=== PATIENT | female | born 1995 | race Two or more races ===

== ENCOUNTER 2022-02-24 14:03 | Inpatient (IN) | payer MEDICAID ==
[2022-02-24] MEDS ORDERED: Water For Irrigation,Sterile 1,000 ML Container IRR PRN (14:46)
[2022-02-24] MEDS ORDERED: Sodium Chloride 0.9% 20 ML SDV IV PRN (14:46)
[2022-02-24] MEDS ORDERED: Ondansetron 4 MG/2 ML SDV IVPUSH PRN (14:46)
[2022-02-24] MEDS ORDERED: Butorphanol 1 MG/ML SDV IVPUSH PRN (14:46)
[2022-02-24] MEDS ORDERED: Sodium Chloride 0.9% 10 ML Syringe FLUSH PRN (14:46)
[2022-02-24] MEDS ORDERED: Misoprostol 200 MCG Tab PO PRN (14:46)
[2022-02-24] MEDS ORDERED: Tranexamic Acid 1,000 MG in Sodium Chloride 0.9% 100 ML IV PRN (14:46)
[2022-02-24] MEDS ORDERED: Lidocaine 1% 50 ML MDV INJECT PRN (14:46)
[2022-02-24] MEDS ORDERED: Methylergonovine 0.2 MG/1 ML Amp IM PRN (14:46)
[2022-02-24] MEDS ORDERED: Sodium Chloride 0.9% 2.5 ML Syringe FLUSH PRN (14:46)
[2022-02-24] MEDS ORDERED: Carboprost Tromethamine 250 MCG/1 ML Amp IM PRN (14:46)
[2022-02-24] MEDS ORDERED: Oxytocin/0.9 % Sodium Chloride 30 UNIT/500 ML BAG IV SCH ×2 (15:00→18:45)
[2022-02-24] MEDS ORDERED: Lactated Ringers 1,000 ML IV SCH (15:00)
[2022-02-24] MEDS ORDERED: Ibuprofen 400 MG Tab PO PRN (23:46)
[2022-02-24] MEDS ORDERED: Acetaminophen 500 MG Tab PO PRN (23:46)
[2022-02-24] MEDS ORDERED: Docusate Sodium 100 MG Cap PO PRN (23:46)
[2022-02-24] MEDS ORDERED: Bisacodyl 10 MG Supp RECTAL PRN (23:46)
[2022-02-24] MEDS ORDERED: Benzocaine/Menthol 20%-0.5% Spray 78 GM Cannister TOP PRN (23:46)
[2022-02-24] MEDS ORDERED: Witch Hazel Medicated Pads 40/Jar TOP PRN (23:46)
[2022-02-24] MEDS ORDERED: Lanolin 100% Cream 7 GM Tube TOP PRN (23:46)
[2022-02-25] MEDS: Ibuprofen 800 MG Tab PO PRN (00:08)
[2022-02-25] MEDS: Acetaminophen 500 MG Tab PO PRN (11:25)
[2022-02-26] MEDS: Acetaminophen 500 MG Tab PO PRN (02:59)
[2022-02-26] MEDS: Ibuprofen 800 MG Tab PO PRN (08:24)
== END 2022-02-26 13:40 | disposition home or self-care (01) | DRG 807 ==
LOC: MW.OB 14:03 → MW.OBCHECK 14:03 → MW.OB 21:41 → MW.OBCHECK 21:41 → OBSVTOIN 21:41 → MW.OB 02-25 02:02
PROVIDERS: ADMIT Obstetrics & Gynecology Obstetrics; ATTEND Obstetrics & Gynecology Obstetrics
PROC: 10E0XZZ Delivery of Products of Conception, External Approach (ICD-10-PCS; principal; 2022-02-24)
DX: O77.0 Labor and delivery complicated by meconium in amniotic fluid (principal); Z37.0 Single live birth; Z20.822 Contact with and (suspected) exposure to COVID-19; Z3A.40 40 weeks gestation of pregnancy
CPT/HCPCS: 36415; 59025; 59409; 85014; 85018; 85027; 86592; 86850; 86900; 86901; A9270-GY; J2590; J7120; U0002

== ENCOUNTER 2024-08-05 18:40 | Observation (INO) | payer MEDICAID ==
[2024-08-05] MEDS: Sodium Chloride 0.9% 1,000 ML IV ONE ×2 (19:46→21:14)
[2024-08-05] MEDS: Sodium Chloride 0.9% 2.5 ML Syringe FLUSH PRN (19:46)
[2024-08-05] MEDS: Sodium Chloride 0.9% 10 ML Syringe FLUSH PRN (19:46)
[2024-08-05 19:50] LABS: BILIRUBIN,URINE NEGATIVE (NEGATIVE); COLOR,URINE YELLOW; GLUCOSE,URINE NEGATIVE (NEGATIVE); KETONES,URINE NEGATIVE (NEGATIVE); LEUKOCYTE ESTERASE,URINE MODERATE (NEGATIVE); NITRITE,URINE NEGATIVE (NEGATIVE); OCCULT BLOOD,URINE TRACE-INTACT (NEGATIVE); PROTEIN,URINE NEGATIVE (NEGATIVE)
[2024-08-05 19:51] LABS: APPEARANCE,URINE SLT CLOUDY
[2024-08-05 19:51] LABS: BASOPHILS ABSOLUTE AUTO 0.02 K/uL (0.00-0.20); BASOPHILS PERCENT AUTO 0.2 % (0.0-1.0); EOSINOPHILS ABSOLUTE AUTO 0.15 K/uL (0.00-0.45); EOSINOPHILS PERCENT AUTO 1.3 % (0.0-6.0); HEMATOCRIT 33.2 % (37.0-47.0); HEMOGLOBIN 11.2 g/dL (12.0-16.0); IMMATURE GRAN PERCENT AUTO 0.8 % (0.0-0.4); LYMPHOCYTES ABSOLUTE AUTO 2.48 K/uL (1.00-4.80); LYMPHOCYTES PERCENT AUTO 20.8 % (24.0-44.0); MEAN CORPUSCULAR HGB CONC 33.7 g/dL (32.0-36.0); MEAN PLATELET VOLUME 10.5 fL (9.4-12.3); MONOCYTES ABSOLUTE AUTO 0.77 K/uL (0.00-0.80); MONOCYTES PERCENT AUTO 6.4 % (0.0-8.0); NEUTROPHILS ABSOLUTE AUTO 8.42 K/uL (1.80-7.70); NEUTROPHILS PERCENT AUTO 70.5 % (41.0-71.0); PLATELET COUNT,PLT 164 K/uL (150-400); RED BLOOD CELL COUNT 3.86 M/uL (4.10-5.30); WHITE BLOOD CELL COUNT,WBC 11.94 K/uL (3.9-11.3)
[2024-08-05 20:03] LABS: AMORPHOUS SEDIMENT,URINE FEW (NEGATIVE); BACTERIA,URINE FEW (NEGATIVE); CALCIUM OXALATE CRYSTALS,URINE MODERATE (NEGATIVE); EPITHELIAL CELLS,URINE FEW (NONE-FEW); MUCUS,URINE OCCASIONAL (NONE-MOD); RBC,URINE 0-2 (0-2/HPF)
[2024-08-05 20:31] LABS: CORONAVIRUS COVID-19 NAA NEGATIVE (NEGATIVE); INFLUENZA A NAA NEGATIVE (NEGATIVE); INFLUENZA B NAA NEGATIVE (NEGATIVE); RESPIRATORY SYNCYTIAL VIR NAA NEGATIVE (NEGATIVE)
[2024-08-05 20:37] LABS: A/G RATIO 0.6 (0.9-1.6); ALANINE AMINOTRANSFERASE,ALT 24 IU/L (14-63); ALBUMIN 2.5 g/dL (3.4-5.0); ALKALINE PHOSPHATASE 179 U/L (46-116); ASPARTATE AMNIOTRANSFERASE,AST 40 IU/L (15-37); BILIRUBIN TOTAL 0.5 mg/dL (0.2-1.0); BLOOD UREA NITROGEN,BUN 5 mg/dL (7.0-18.0); CALCIUM 8.8 mg/dL (8.5-10.1); CARBON DIOXIDE,CO2 23.7 mmol/L (21.0-32.0); CHLORIDE,CL 107 mmol/L (98-107); CREATININE 0.4 mg/dL (0.6-1.0); GLUCOSE RANDOM 80 mg/dL (74-106); LIPASE 46 U/L (16-77); MAGNESIUM 1.6 mg/dL (1.8-2.4); PROTEIN TOTAL,TP 6.4 g/dL (6.4-8.2); SODIUM,NA 142 mmol/L (136-145)
[2024-08-05 20:41] LABS: CREATINE KINASE,CK 1071 U/L (26-308); ESTIMATED GFR 140 mL/min (>60); POTASSIUM,K 2.2 mmol/L (3.5-5.1)
[2024-08-05] MEDS: Potassium Chloride 20 MEQ in Premix Bag 1 BAG IV ONE ×2 (21:14→23:44)
[2024-08-05] MEDS ORDERED: Sodium Chloride 0.9% 250 ML IV SCH (21:15)
[2024-08-05] MEDS: Lidocaine 2% 11 ML Jelly Filled Syringe MUCMEM STA (22:27)
[2024-08-05] MEDS: Terbutaline 1 MG/ML SDV SUBCUT ONE (23:45)
[2024-08-06] MEDS: Sodium Chloride 0.9% 1,000 ML IV SCH ×2 (01:25→13:11)
[2024-08-06 06:09] LABS: BLOOD UREA NITROGEN,BUN 7 mg/dL (7.0-18.0); CALCIUM 8.4 mg/dL (8.5-10.1); CARBON DIOXIDE,CO2 23.8 mmol/L (21.0-32.0); CHLORIDE,CL 110 mmol/L (98-107); CREATININE 0.6 mg/dL (0.6-1.0); GLUCOSE RANDOM 89 mg/dL (74-106); SODIUM,NA 144 mmol/L (136-145)
[2024-08-06 06:12] LABS: ESTIMATED GFR 127 mL/min (>60)
[2024-08-06] MEDS: Potassium Chloride 20 MEQ in Premix Bag 1 BAG IV SCH (07:15)
[2024-08-06 09:27] LABS: AMPHETAMINES SCREEN, URINE NEGATIVE (CUTOFF=500); BARBITURATE SCREEN,URINE NEGATIVE (CUTOFF=200); BENZODIAZEPINES SCREEN,URINE NEGATIVE (CUTOFF=150); BUPRENORPHINE SCREEN,URINE NEGATIVE (CUTOFF=10); METHADONE SCREEN, URINE NEGATIVE (CUTOFF=200); METHAMPHETAMINES SCREEN, URINE NEGATIVE (CUTOFF=500); OXYCODONE SCREEN,URINE NEGATIVE (CUT0FF=100); PCP SCREEN,URINE NEGATIVE (CUTOFF=25); THC SCREEN,URINE 20 NG/ML NEGATIVE (CUTOFF=50)
[2024-08-06] MEDS ORDERED: Sodium Chloride 0.9% 2.5 ML Syringe FLUSH PRN (10:27)
[2024-08-06] MEDS ORDERED: Ondansetron 4 MG/2 ML SDV IVPUSH PRN (10:27)
[2024-08-06 10:46] LABS: MAGNESIUM 1.5 mg/dL (1.8-2.4)
[2024-08-06] MEDS: Magnesium Sulfate/Water 4 GM in Premix Bag 1 BAG IV ONE (11:40)
[2024-08-06 11:48] LABS: CREATININE,URINE RAND 72.2 mg/dL; POTASSIUM,URINE RANDOM 12.5 mmol/L
[2024-08-06] MEDS: Potassium Chloride 10 MEQ in Premix Bag 1 BAG IV SCH ×2 (11:49→16:54)
[2024-08-06] MEDS: Potassium Chloride 20 MEQ Tab.ER PO SCH ×2 (11:52→18:12)
[2024-08-06 14:41] LABS: CARBON DIOXIDE,CO2 22.9 mmol/L (21.0-32.0); CREATININE 0.6 mg/dL (0.6-1.0); EST CRCL DRUG DOSING (CG) 102.06 mL/min; POTASSIUM,K 2.6 mmol/L (3.5-5.1)
[2024-08-06] MEDS ORDERED: Potassium Chloride 10 MEQ in Premix Bag 1 BAG IV SCH (15:30)
[2024-08-06] MEDS: Sodium Chloride 0.9% 10 ML Syringe FLUSH PRN (21:20)
[2024-08-06 22:22] LABS: CALCIUM 8.1 mg/dL (8.5-10.1); CARBON DIOXIDE,CO2 23.9 mmol/L (21.0-32.0); CREATININE 0.5 mg/dL (0.6-1.0); EST CRCL DRUG DOSING (CG) 122.47 mL/min; MAGNESIUM 1.7 mg/dL (1.8-2.4); POTASSIUM,K 3.2 mmol/L (3.5-5.1)
[2024-08-07 06:29] LABS: CALCIUM 8.2 mg/dL (8.5-10.1); CREATININE 0.4 mg/dL (0.6-1.0); EST CRCL DRUG DOSING (CG) 153.09 mL/min; MAGNESIUM 1.5 mg/dL (1.8-2.4)
[2024-08-07] MEDS: Prenatal Multivitamin with Calcium/Folic Acid/Iron Tab PO SCH (09:16)
[2024-08-07] MEDS: Potassium Chloride 10 MEQ in Premix Bag 1 BAG IV SCH (09:31)
[2024-08-07] MEDS: Magnesium Sulfate/Water 4 GM in Premix Bag 1 BAG IV ONE (09:44)
[2024-08-07] MEDS: Potassium Chloride 20 MEQ Tab.ER PO SCH ×2 (10:33→17:56)
[2024-08-07] MEDS ORDERED: Lidocaine 1% 2 ML ONE (12:43)
[2024-08-07] MEDS: NS with KCl 40mEq 1,000 ML IV ONE (13:15)
[2024-08-07] MEDS: Sodium Chloride 0.9% 1,000 ML IV SCH (18:13)
[2024-08-07] MEDS: Loperamide 2 MG Cap PO PRN (19:37)
[2024-08-07 19:39] LABS: CALCIUM 8.7 mg/dL (8.5-10.1); CARBON DIOXIDE,CO2 25.5 mmol/L (21.0-32.0); CREATININE 0.5 mg/dL (0.6-1.0); EST CRCL DRUG DOSING (CG) 122.47 mL/min; MAGNESIUM 1.7 mg/dL (1.8-2.4); POTASSIUM,K 3.8 mmol/L (3.5-5.1)
[2024-08-08 06:48] LABS: BASOPHILS ABSOLUTE AUTO 0.02 K/uL (0.00-0.20); BASOPHILS PERCENT AUTO 0.2 % (0.0-1.0); EOSINOPHILS ABSOLUTE AUTO 0.17 K/uL (0.00-0.45); EOSINOPHILS PERCENT AUTO 2.1 % (0.0-6.0); HEMATOCRIT 29.5 % (37.0-47.0); HEMOGLOBIN 9.9 g/dL (12.0-16.0); IMMATURE GRAN ABSOLUTE AUTO 0.15 K/uL (0.00-0.05); IMMATURE GRAN PERCENT AUTO 1.9 % (0.0-0.4); LYMPHOCYTES ABSOLUTE AUTO 2.26 K/uL (1.00-4.80); MEAN CORPUSCULAR HEMOGLOBIN 29.3 pg (28.0-32.0); MEAN CORPUSCULAR HGB CONC 33.6 g/dL (32.0-36.0); MEAN CORPUSCULAR VOLUME 87.3 fL (83.0-99.0); MONOCYTES ABSOLUTE AUTO 0.56 K/uL (0.00-0.80); MONOCYTES PERCENT AUTO 6.9 % (0.0-8.0); NEUTROPHILS ABSOLUTE AUTO 4.91 K/uL (1.80-7.70); NEUTROPHILS PERCENT AUTO 60.9 % (41.0-71.0); PLATELET COUNT,PLT 138 K/uL (150-400); RED BLOOD CELL COUNT 3.38 M/uL (4.10-5.30); WHITE BLOOD CELL COUNT,WBC 8.07 K/uL (3.9-11.3)
[2024-08-08 07:08] LABS: CALCIUM 8.6 mg/dL (8.5-10.1); CARBON DIOXIDE,CO2 24.3 mmol/L (21.0-32.0); CREATININE 0.4 mg/dL (0.6-1.0); EST CRCL DRUG DOSING (CG) 153.09 mL/min; MAGNESIUM 1.5 mg/dL (1.8-2.4); POTASSIUM,K 3.7 mmol/L (3.5-5.1)
[2024-08-08] MEDS: Acetaminophen 325 MG Tab PO PRN (12:10)
[2024-08-08] MEDS ORDERED: Magnesium Sulfate/Water 2 GM/50 ML Premix Bag IV ONE (12:23)
[2024-08-08] MEDS: Magnesium Sulfate/Water 2 GM in Premix Bag 1 BAG IV ONE (13:15)
[2024-08-09 13:02] LABS: ALDOSTERONE <3.0 ng/dL
== END 2024-08-08 16:45 | disposition home or self-care (01) ==
LOC: MW.ED 18:40 → MW.OB 20:59 → UNDOADMOB 21:39
PROVIDERS: ADMIT Obstetrics & Gynecology; ATTEND Obstetrics & Gynecology
DX: O26.893 Other specified pregnancy related conditions, third trimester (principal); M62.81 Muscle weakness (generalized); E87.6 Hypokalemia; M62.82 Rhabdomyolysis; E55.9 Vitamin D deficiency, unspecified; Z20.822 Contact with and (suspected) exposure to COVID-19; Z3A.34 34 weeks gestation of pregnancy
CPT/HCPCS: 0241U; 36415; 80048; 80053; 80305; 81001; 82088; 82550; 82570; 83690; 83735; 83930; 83935; 84100; 84133; 85025; 96361; 96365; 96366; 96367; 96368; 96372; 99285; A9270; G0378; J3105; J3475; J3480; J3490; J7030; 59025; 99204; 99213; 99221; 99231; 99238

== ENCOUNTER 2024-09-11 12:33 | Inpatient (IN) | payer MEDICAID ==
[2024-09-11] MEDS ORDERED: Carboprost Tromethamine 250 MCG/1 mL Vial IM PRN (12:48)
[2024-09-11] MEDS ORDERED: Lidocaine 1% 50 ML MDV INJECT PRN (12:48)
[2024-09-11] MEDS ORDERED: Methylergonovine 0.2 MG/1 ML Amp IM PRN (12:48)
[2024-09-11] MEDS ORDERED: Water For Irrigation,Sterile 1,000 ML Container IRR PRN (12:48)
[2024-09-11] MEDS ORDERED: Sodium Chloride 0.9% 10 ML Syringe FLUSH PRN (12:48)
[2024-09-11] MEDS ORDERED: Sodium Chloride 0.9% 2.5 ML Syringe FLUSH PRN (12:48)
[2024-09-11] MEDS ORDERED: Butorphanol 2 MG/ML SDV IVPUSH PRN (12:48)
[2024-09-11] MEDS ORDERED: Sodium Chloride 0.9% 20 ML SDV IV PRN (12:48)
[2024-09-11] MEDS ORDERED: Ampicillin 1 GM in Sodium Chloride 0.9% 50 ML IV SCH ×2 (13:00→17:00)
[2024-09-11] MEDS: Ampicillin 2 GM in Sodium Chloride 0.9% 100 ML IV ONE (13:15)
[2024-09-11] MEDS: Lactated Ringers 1,000 ML IV SCH (13:19)
[2024-09-11 13:42] LABS: HEMATOCRIT 36.4 % (37.0-47.0); HEMOGLOBIN 11.9 g/dL (12.0-16.0); MEAN CORPUSCULAR HGB CONC 32.7 g/dL (32.0-36.0); MEAN CORPUSCULAR VOLUME 88.8 fL (83.0-99.0); PLATELET COUNT,PLT 159 K/uL (150-400); WHITE BLOOD CELL COUNT,WBC 11.03 K/uL (3.9-11.3)
[2024-09-11] MEDS: Oxytocin/0.9 % Sodium Chloride 30 UNIT/500 ML BAG ONE (13:50)
[2024-09-11] MEDS: Oxytocin/0.9 % Sodium Chloride 30 UNIT/500 ML BAG IV SCH (14:25)
[2024-09-11] MEDS ORDERED: Oxytocin/0.9 % Sodium Chloride 30 UNIT/500 ML BAG IV SCH (14:30)
[2024-09-11] MEDS ORDERED: Bupivacaine 0.5% 10 ML SDV ONE (14:59)
[2024-09-11] MEDS ORDERED: Phenylephrine HCl In 0.9% NaCl 1 MG/10 ML Syringe ONE (14:59)
[2024-09-11] MEDS ORDERED: Ropivacaine HCl/PF 200 ML ONE (14:59)
[2024-09-11] MEDS: Ropivacaine HCl/PF 400 MG in Premix Bag 1 BAG EPIDUR SCH (15:20)
[2024-09-11] MEDS ORDERED: ePHEDrine 50 MG/ML SDV IM PRN (15:22)
[2024-09-11] MEDS ORDERED: ePHEDrine 50 MG/ML SDV IVPUSH PRN (15:22)
[2024-09-11] MEDS ORDERED: Bupivacaine 0.5% 10 ML SDV INJECT ONE (15:22)
[2024-09-11] MEDS ORDERED: Phenylephrine HCl In 0.9% NaCl 1 MG/10 ML Syringe IVPUSH PRN (15:22)
[2024-09-11] MEDS ORDERED: dexmedeTOMIDine HCl 200 MCG/2 ML SDV EPIDUR SCH (15:30)
[2024-09-11] MEDS ORDERED: Misoprostol 200 MCG Tab ONE (16:00)
[2024-09-11] MEDS: Misoprostol 200 MCG Tab PO PRN (16:40)
[2024-09-11] MEDS ORDERED: Witch Hazel Medicated Pads 40/Jar TOP PRN (16:51)
[2024-09-11] MEDS ORDERED: oxyCODONE 5 MG Tab PO PRN (16:51)
[2024-09-11] MEDS ORDERED: Docusate Sodium 100 MG Cap PO PRN (16:51)
[2024-09-11] MEDS ORDERED: Lanolin 100% Cream 7 GM Tube TOP PRN (16:51)
[2024-09-11] MEDS ORDERED: Benzocaine/Menthol 20%-0.5% Spray 78 GM Cannister TOP PRN (16:51)
[2024-09-11 17:10] LABS: PH,UMBILICAL VENOUS 7.256 (7.25-7.45)
[2024-09-12] MEDS: Acetaminophen 500 MG Tab PO PRN (01:06)
[2024-09-12] MEDS: Ibuprofen 800 MG Tab PO PRN (01:07)
[2024-09-12 06:56] LABS: HEMOGLOBIN 9.5 g/dL (12.0-16.0)
== END 2024-09-13 21:20 | disposition home or self-care (01) | DRG 806 ==
LOC: MW.OBCHECK 12:33 → MW.OB 12:35 → MW.OBCHECK 12:49 → MW.OB 12:49 → OBSVTOIN 17:00 → MW.OB 23:47
PROVIDERS: ADMIT Obstetrics & Gynecology; ATTEND Obstetrics & Gynecology Obstetrics
PROC: 10E0XZZ Delivery of Products of Conception, External Approach (ICD-10-PCS; principal; 2024-09-11)
DX: O42.02 Full-term premature rupture of membranes, onset of labor within 24 hours of rupture (principal); D62 Acute posthemorrhagic anemia; Z37.0 Single live birth; O72.1 Other immediate postpartum hemorrhage; O99.824 Streptococcus B carrier state complicating childbirth; Z3A.39 39 weeks gestation of pregnancy; O99.02 Anemia complicating childbirth; O99.284 Endocrine, nutritional and metabolic diseases complicating childbirth; E87.6 Hypokalemia; O99.344 Other mental disorders complicating childbirth; F32.A Depression, unspecified
CPT/HCPCS: 36415; 51701; 59025; 59409; 82803; 85014; 85018; 85027; 86592; 86850; 86900; 86901; A9270-GY; J0290; J0665; J2371; J2590; J2795; J3490; J7120

== ENCOUNTER 2024-12-02 15:46 | Emergency (ER) | payer MEDICAID ==
[2024-12-02] MEDS: Amoxicillin 500 MG Cap PO ONE (16:36)
== END 2024-12-02 16:40 | disposition home or self-care (01) ==
LOC: MW.ED 15:46
DX: H66.002 Acute suppurative otitis media without spontaneous rupture of ear drum, left ear (principal); Z75.8 Other problems related to medical facilities and other health care
CPT/HCPCS: 99282; A9270

== ENCOUNTER 2025-01-30 02:57 | Emergency (ER) | payer MEDICAID ==
[2025-01-30] MEDS: Acetaminophen 500 MG Tab PO ONE (04:14)
[2025-01-30] MEDS: Ibuprofen 600 MG Tab PO ONE (04:16)
== END 2025-01-30 05:20 | disposition home or self-care (01) ==
LOC: MW.ED 02:57
DX: H93.12 Tinnitus, left ear (principal); Z75.8 Other problems related to medical facilities and other health care
CPT/HCPCS: 99282; A9270